=== PATIENT | male | born 1970 | race Caucasian/White ===

== ENCOUNTER 2021-04-07 15:38 | Emergency (ER) | payer BC, SELFPAY ==
--- NOTE | ~2021-04-07 | XR_ITS ---
EXAMINATION: XR shoulder RT min 2V DATE: 04/07/2021 16:27 INDICATION: Right shoulder pain. TECHNIQUE: 4 views of right shoulder were obtained. COMPARISON: None. FINDINGS: Bone alignment is normal. No acute fracture. There is an old healed fracture of right clavi gavi at the junction of the middle and distal thirds. There is moderate osteoarthritis of glenohumeral joint and acromioclavicular joint. IMPRESSION: 1. Polyarticular osteoarthritis. Reviewed, dictated and finalized at location B. [employer]
[2021-04-07 15:45] VITALS: BP 146/76; PULSE 77; RESP 20; TEMP 36.8; O2SAT 100
--- NOTE | 2021-04-07 16:13 | ED.UPPEXIN ---
HPI - Extremity Injury (Upper) General Chief Complaint: Extremity Injury, Upper Stated Complaint: Right shoulder Time Seen by Provider: 04/07/21 16:11 Source: patient and RN notes reviewed Mode of arrival: ambulatory Limitations: no limitations History of Present Illness HPI narrative: 51-year-old male presents to the [facility] with complaints of right shoulder pain for the last 3 months. Denies any direct trauma. Does a lot of repetitive motion at work. Right shoulder is slightly lower than the left. Range of motion is limited secondary to pain. No bruising or swelling noted. Positive radial pulse. Full range of motion of the elbow and wrist without increased pain to the shoulder. Has been taking 's pain pills complaint: injury to: right and shoulder Related Data Home Medications Medication Instructions Recorded Confirmed amlodipine 10 mg PO DAILY 04/07/21 04/07/21 diclofenac sodium 75 mg PO BID 04/07/21 04/07/21 gemfibrozil 600 mg PO BID 04/07/21 04/07/21 lisinopril 20 mg PO DAILY 04/07/21 04/07/21 montelukast 10 mg PO HS 04/07/21 04/07/21 Allergies Allergy/AdvReac Type Severity Reaction Status Date / Time No Known Allergies Allergy Verified 04/07/21 16:23 Review of Systems Review of Systems: All systems reviewed & are unremarkable except as noted in HPI and below Constitutional: Constitutional: Reports no additional constitutional complaints and Denies chills Eyes: Eyes: Reports no additional eye complaints ENT: Reports system reviewed and no additional complaints, except as documented Cardiovascular: Cardiovascular: Reports no additional cardiovascular complaints Respiratory: Respiratory: Reports no additional respiratory complaints Gastrointestinal: Gastrointestinal: Reports no additional gastrointestinal complaints Musculoskeletal: Musculoskeletal: Reports as per HPI and Reports arthralgias Integumentary/Breasts: Skin/Breast: Reports system reviewed and no additional complaints, except as docu Neurologic: Reports system reviewed and no additional complaints, except as documented Psychiatric: Psychiatric: Reports no additional psychiatric complaints Allergic/Immunologic: Allergic/Immunologic: Reports no additional allergic/immunologic complaints PMFSH Comments At the time of my signature, I reviewed and agree with the nursing past medical, surgical, social, and family history. There is no relevant family history pertinent to the patient complaint. Exam Const: General: healthy appearing and no acute distress Nutritional Appearance: well nourished and obese Orientation/consciousness: patient oriented x3 Limitations: no limitations HENMT: Head: normal to inspection Eyes: Pupils: Equal, round and reactive pupils present Neck: Neck: normal visual inspection, no lymphadenopathy and no meningeal signs Chest: Chest palpation & inspection: normal inspection of the chest Resp: Effort & Inspection: normal respiratory effort and no use of accessory muscles Auscultation: clear to auscultation bilaterally, no crackles, no rales, no rhonchi and no wheezes Cardio: Rate: regular rate Rhythm: regular rhythm GI: GI Palp: Yes Soft to palpation and No Tenderness to palpation present (GI) Back/Spine/Pelvis: Back: no CVA tenderness Skin: General skin exam: normal color Rashes: no rashes Wounds: no wounds Neuro: General: patient oriented x3, moves all extremities, no meningeal signs and no focal motor deficits Speech: normal speech Gait exam (Neuro): Normal gait present Extrem: General: normal to inspection Left upper extremity: shoulder/upper arm abnormal ROM pain with active ROM in ADduction and in ABduction and pain with passive ROM in ADduction and in ABduction, wrist normal to inspection and normal ROM; no tenderness and no swelling and hand normal capillary refill, neuromotor exam normal, neurosensory exam normal and normal ROM of fingers Psych: Appearance: grossly normal and well darryl
== END 2021-04-07 16:50 | disposition home or self-care (01) ==
PROVIDERS: Emergency Provider Nurse Practitioner; PCP Physician Assistant
DX: M25.512 Pain in left shoulder (principal)
CPT/HCPCS: 73030; 99203; G0463